=== PATIENT | male | born 1940 | race Hispanic/Latino ===

== ENCOUNTER 2024-03-31 08:43 | Emergency (ER) | payer OTHER ==
[~2024-03-31] VITALS: Ht 180.3 cm; Wt 78.0 kg
[2024-03-31 11:31] VITALS: BP 110/80; PULSE 57; RESP 16; TEMP 98; O2SAT 98
[2024-03-31] MEDS: acetaMINOPHEN 500 MG TABLET PO ONE (11:37)
== END 2024-03-31 13:24 | disposition home or self-care (01) ==
LOC: EDH 08:43
DX: S70.02XA Contusion of left hip, initial encounter (principal); X58.XXXA Exposure to other specified factors, initial encounter; Y93.89 Activity, other specified; Y92.89 Other specified places as the place of occurrence of the external cause; Y99.8 Other external cause status
CPT/HCPCS: 72170